=== PATIENT | female | born 1975 | race Caucasian/White ===

== ENCOUNTER 2017-08-28 08:47 | Outpatient (CLI) | payer MEDICAID ==
[~2017-08-28] VITALS: Ht 157.5 cm; Wt 65.3 kg
[~2017-08-28 08:47] MED LIST: ALBU8.5H4 IH; ALPR1T PO; BACL10TA PO; BCP; BSP10T; CRS350T PO; CYCL10TA9; FLUT12AE4 IH; FNT100TD TD; HYDR-2997 PO; HYDR-3720 PO; MORP15TA PO; MORP30TA28 PO; OXYC-12 PO; OXYC-272 PO; OXYC1CAP3 PO; TRAZ150T42
[2017-08-28] MEDS ORDERED: MORP15TA PO (09:18)
[2017-08-28] MEDS ORDERED: ROPI2TAB4 PO (09:18)
[2017-08-28] MEDS ORDERED: MORP30TA PO (09:18)
[2017-08-28] MEDS ORDERED: OXYC10TA7 PO (09:18)
[2017-08-28] MEDS ORDERED: ALPR0.5T7 PO (09:18)
[2017-08-28] MEDS ORDERED: ZOLP10TA PO (09:18)
[2017-08-28] MEDS ORDERED: GABA800T2 PO (09:18)
[2017-08-28] MEDS ORDERED: PANT20TA3 PO (09:19)
[2017-08-28] MEDS ORDERED: WARF5TAB PO (09:19)
== END 2017-08-28 09:20 ==
LOC: PREOP 08:47
PROVIDERS: ATTEND Surgery
DX: Z01.818 Encounter for other preprocedural examination (principal); D17.1 Benign lipomatous neoplasm of skin and subcutaneous tissue of trunk

== ENCOUNTER 2017-08-31 11:36 | Day surgery (SDC) | payer MEDICAID ==
[~2017-08-31] VITALS: Ht 157.5 cm; Wt 65.3 kg
[~2017-08-31 11:36] MED LIST changes: +ALPR0.5T7 PO; +GABA800T2 PO; +MORP30TA PO; +OXYC10TA7 PO; +PANT20TA3 PO; +ROPI2TAB4 PO; +WARF5TAB PO; +ZOLP10TA PO
--- NOTE | 2017-08-31 11:45 | Progress Note-Pre Operative ---
Pre-Operative Progress Note H&P Reviewed The H&P was reviewed, patient examined and no changes noted. Date Seen by Provider: Aug 31, 2017 Time Seen by Provider: 11:44 Date H&P Reviewed: Aug 31, 2017 Time H&P Reviewed: 11:44 Pre-Operative Diagnosis: left lower quadrant back mass ATIF VELAZQUEZ DO Aug 31, 2017 11:45
[2017-08-31 11:55] VITALS: BP 94/59
[2017-08-31] MEDS ORDERED: LIDOCAINE 1% INJ 20 ML (XYLOCAINE) VIAL ONE ×2 (12:05→12:20)
[2017-08-31] MEDS ORDERED: BUPIVACAINE 0.5% 30 ML (SENSORCAINE) VIAL ONE (12:05)
[2017-08-31] MEDS ORDERED: ceFAZolin 2 GM IV Premixed 50 ML IV ONE (12:15)
[2017-08-31] MEDS ORDERED: ONDANSETRON 4 MG/2 ML (SDV) Z0FRAN ONE (12:20)
[2017-08-31] MEDS ORDERED: DEXAMETHASONE 10 MG/ML (DECADRON) 1 ML VIAL ONE (12:20)
[2017-08-31] MEDS ORDERED: LIDOCAINE PF 2% 5 ML (XYLOCAINE) VIAL ONE (12:20)
[2017-08-31] MEDS ORDERED: proPOfol 200 MG/20 ML (DIPRIVAN) VIAL IV ONE (12:20)
[2017-08-31] MEDS ORDERED: SEVOFLURANE (ULTANE) 15 ML INHAL SOLN ONE (12:20)
[2017-08-31] MEDS ORDERED: MIDAZOLAM 2 MG/2 ML (VERSED) VIAL ONE ×2 (12:20→13:20)
[2017-08-31] MEDS ORDERED: fentaNYL INJECTION 100 MCG/2 ML AMP ONE (12:20)
[2017-08-31 12:22] LABS: HCG,QUALITATIVE URINE NEGATIVE (NEGATIVE)
[2017-08-31] MEDS: LACTATED RINGERS 1,000 ML IV PRN ×2 (12:35→14:37)
[2017-08-31 12:37] LABS: AMPHETAMINE SCREEN, URINE NEGATIVE (NEGATIVE); BARBITURATE SCREEN URINE NEGATIVE (NEGATIVE); BENZODIAZEPINES SCREEN URINE POSITIVE (NEGATIVE); CANNABINOID SCREEN, URINE NEGATIVE (NEGATIVE); COCAINE SCREEN URINE NEGATIVE (NEGATIVE); METHADONE STAT NEGATIVE (NEGATIVE); METHAMPHETAMINE SCREEN URINE S NEGATIVE (NEGATIVE); OPIATE SCREEN URINE POSITIVE (NEGATIVE); OXYCODONE STAT POSITIVE (NEGATIVE); PROPOXYPHENE STAT NEGATIVE (NEGATIVE); TRICYCLIC ANTIDEPRESSANTS SCRE NEGATIVE (NEGATIVE)
[2017-08-31] MEDS ORDERED: ceFAZolin 2 GM IV Premixed 50 ML ONE (12:41)
--- OUTSIDE RECORDS SUMMARY | 2017-08-31 12:44 | XMS REPORT ---
Author Author ANTONETTE KATZ [facility] eClinicalWorks Address Unknown Phone Unavailable Care Team Providers Care Charge Master Specialist Name Role Phone ANTONETTE KATZ CP Unavailable Allergies, Adverse Reactions, Alerts Substance Reaction Event Type Parafon Forte DSC nausea Drug Allergy Shellfish anaphylaxis Non Drug Allergy Problems Problem Type Condition Code Onset Dates Condition Status Problem Rhinitis 472.0 Active Problem Congestive heart failure 428.0 Active Problem GERD (gastroesophageal reflux disease) 530.81 Active Problem Coronary artery disease involving [place] coronary artery of [place] heart, angina presence unspecified I25.10 Active Problem Heart disease, unspecified I51.9 Active Problem Orbital cellulitis, left H05.012 Active Problem COPD (chronic obstructive pulmonary disease) 496 Active Problem Epilepsy 345.90 Active Problem Encounter for long-term (current) use of other medications Z79.899 Active Problem Moderate persistent asthma without complication J45.40 Active Assessment Heart disease, unspecified I51.9 Active Assessment Encounter for long-term (current) use of other medications Z79.899 Active Problem Unspecified heart disease 429.9 Active Problem Chronic pain due to trauma 338.21 Active Assessment Orbital cellulitis, left H05.012 Active Problem DVT (deep venous thrombosis) 453.40 Active Problem Dysthymic disorder 300.4 Active Problem Bipolar 1 disorder 296.7 Active Medications Medication Code System Code Instructions Start Date End Date Status Dosage Terbinafine [facility] [address]-23 1 % Externally 3 times a day Jun 09, 2015 as directed Voltaren [facility] [address]-69 1 % 1 APPLICATION BY TRANSDERMAL ROUTE 3 DAILY PRN APPLY 4 GM TO AFFECTED AREA QID Warfarin Sodium [facility] 96949778907 5 MG TAKE 1-2 TABLET BY ORAL ROUTE 1 TIME PER DAY TAKE DIRECTED Hydrocodone-Acetaminophen [facility] [address]-41 5-325 MG Orally 2 times a day. Must last 14 days 1 tablet ZyrTEC [facility] [address]-68 10 MG 1 tablet by Oral route 1 time per day Symbicort NDC [address]-66 160-4.5 MCG/ACT Inhalation Twice a day Jun 09, 2015 2 puffs Flonase Allergy Relief [facility] [address]-85 50 MCG/ACT Nasally 1-2 x/d October 14, 2014 1 -2 spray in each nostril MS Contin [facility] [address]-24 15 MG Orally 2 times a day. Must last 14 days 1 tablet Omeprazole [facility] [address]-94 20 MG Orally 2 times a day 1 capsule Ventolin HFA [facility] 69176178778 108 (90 Base) MCG/ACT INHALE 2 PUFF BY INHALATION ROUTE NEEDED EVERY 4 HOURS USE PRN SHORTNESS OF BREATH Albuterol Sulfate [facility] [address]-29 (2.5 MG/3ML) 0.083% Inhalation 4 times a day prn November 10, 2014 3 ml Parafon Forte DSC [facility] [address]-71 500 MG Orally Three times a day 1 tablet Venlafaxine HCl [facility] [address]-05 37.5 MG Orally Twice a day Apr 22, 2015 1 tablet with food HydrOXYzine HCl [facility] [address]-59 25 MG 1-2 Tablet by Oral route 3 times per day PRN hives Gabapentin [facility] [address]-78 800 MG Orally Three times a day November 18, 2014 1 tablet Procedures Procedure Coding System Code Date Office Visit, Est Pt., Level 3 CPT-4 20920 Jul 09, 2015 Vital Signs Date/Time: Jul 09, 2015 Temperature 98.2 F Weight 132.8 lbs Height 62 in BMI 24.29 Index Blood Pressure Diastolic 88 mmHg Blood Pressure Systolic 152 mmHg Cardiac Monitoring Heart Rate 84 bpm Results No Known Results Summary Purpose eClinicalWorks Submission
--- OUTSIDE RECORDS SUMMARY | 2017-08-31 12:44 | XMS REPORT ---
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 Active Problem Heart disease, unspecified I51.9 Active Problem Encounter for long-term (current) use of other medications Z79.899 Active Problem Orbital cellulitis, left H05.012 Active Problem Coronary artery disease involving [place] coronary artery of [place] heart, angina presence unspecified I25.10 Active Problem Dysthymic disorder 300.4 Active Problem Unspecified heart disease 429.9 Active Assessment Encounter for immunization Z23 Active Problem Bipolar 1 disorder 296.7 Active Problem Rhinitis 472.0 Active Problem Chronic pain due to trauma 338.21 Active Problem GERD (gastroesophageal reflux disease) 530.81 Active Problem DVT (deep venous thrombosis) 453.40 Active Problem Congestive heart failure 428.0 Active Medications No Known Medications Procedures Procedure Coding System Code Date SINGLE IMMUNIZATION ADMIN CPT-4 79488 Apr 19, 2016 FLUARIX QUAD P-FREE 3 AND UP .50 2015 CPT-4 63201 Apr 19, 2016 Results No Known Results Immunizations Vaccine Administration Date FLUZONE QUAD 3 AND UP 0.50 2015Apr 19, 2016 Summary Purpose eClinicalWorks Submission
--- OUTSIDE RECORDS SUMMARY | 2017-08-31 12:44 | XMS REPORT ---
Author Author ANTONETTE KATZ [facility] eClinicalWorks Address Unknown Phone Unavailable Care Team Providers Care Superintendent Greens Name Role Phone ANTONETTE KATZ CP Unavailable Allergies, Adverse Reactions, Alerts Substance Reaction Event Type Parafon Forte DSC nausea Drug Allergy Shellfish anaphylaxis Non Drug Allergy Problems Problem Type Condition Code Onset Dates Condition Status Problem Asthma 493.90 Active Problem Bipolar 1 disorder 296.7 Active Problem DVT (deep venous thrombosis) 453.40 Active Problem COPD (chronic obstructive pulmonary disease) 496 Active Problem Dysuria 788.1 Active Problem Encounter for long-term (current) use of other medications V58.69 Active Problem GERD (gastroesophageal reflux disease) 530.81 Active Problem Rhinitis 472.0 Active Problem Epilepsy 345.90 Active Problem Congestive heart failure 428.0 Active Problem Dysthymic disorder 300.4 Active Problem Unspecified heart disease 429.9 Active Assessment Dysthymic disorder 300.4 Active Problem Encounter for long-term (current) use of anticoagulants V58.61 Active Assessment Bronchitis J40 Active Problem Chronic pain due to trauma 338.21 Active Medications Medication Code System Code Instructions Start Date End Date Status Dosage HydrOXYzine HCl [facility] [address]-94 25 MG 1-2 Tablet by Oral route 3 times per day PRN hives Lamictal [facility] [address]-50 100 MG 1 TABLET(S) BY ORAL ROUTE 1 TIME PER DAY Warfarin Sodium [facility] 82164427282 5 MG TAKE 1-2 TABLET BY ORAL ROUTE 1 TIME PER DAY TAKE DIRECTED Zithromax Z-Luiz [facility] [address]-93 250 MG Orally Once a day Apr 22, 2015 Apr 27, 2015 2 tab d 1 then 1 tab qd Voltaren [facility] [address]-93 1 % 1 APPLICATION BY TRANSDERMAL ROUTE 3 DAILY PRN APPLY 4 GM TO AFFECTED AREA QID Flonase Allergy Relief [facility] [address]-36 50 MCG/ACT Nasally 1-2 x/d October 14, 2014 1 -2 spray in each nostril Omeprazole [facility] [address]-69 20 MG Orally 2 times a day [address] [facility] [address]-09 100 MG Orally Three times a day Apr 22, 2015 1 capsule as needed ZyrTEC [facility] [address]-67 10 MG 1 tablet by Oral route 1 time per day Ventolin HFA [facility] 74025354117 108 (90 Base) MCG/ACT INHALE 2 PUFF BY INHALATION ROUTE NEEDED EVERY 4 HOURS USE PRN SHORTNESS OF BREATH Albuterol Sulfate [facility] [address]-66 (2.5 MG/3ML) 0.083% Inhalation 4 times a day prn November 10, 2014 3 ml MS Contin [facility] [address]-66 15 MG Orally 2 times a day. Must last 14 days 1 tablet Hydrocodone-Acetaminophen [facility] [address]-89 5-325 MG Orally 2 times a day. Must last 14 days [address] [facility] [address]-87 10 MG Orally 2 per day Apr 22, 2015 Apr 27, 2015 1 tablet with food or milk Venlafaxine HCl [facility] [address]-23 37.5 MG Orally Twice a day Apr 22, 2015 1 tablet with food Gabapentin [facility] [address]-98 600 MG Orally Three times a day November 18, [address] [facility] [address]-10 25 MG Orally Once a day in am January 20, 2015 [address] [facility] [address]-86 500 MG Orally 1 tablet by Oral route 3 times per day PRN Procedures Procedure Coding System Code Date Office Visit, Est Pt., Level 3 CPT-4 27505 Apr 22, 2015 MEASURE BLOOD OXYGEN LEVEL CPT-4 71297 Apr 22, 2015 Vital Signs Date/Time: Apr 22, 2015 Temperature 97.9 F Weight 130 lbs Height 62 in Oximetry 99 % Blood Pressure Diastolic 76 mmHg Blood Pressure Systolic 138 mmHg Cardiac Monitoring Heart Rate 81 bpm BMI 23.77 Index Results No Known Results Summary Purpose eClinicalWorks Submission
--- OUTSIDE RECORDS SUMMARY | 2017-08-31 12:44 | XMS REPORT ---
Author Author ANTONETTE KATZ Organization eClinicalWorks Address Unknown Phone Unavailable Care Team Providers Care Metal Buggy Operator Name Role Phone ANTONETTE KATZ CP Unavailable Allergies No Known Allergies Problems Problem Type Condition ICD-9 Code Onset Dates Condition Status Problem Asthma [...] Problem Unspecified heart disease 429.9 Active Problem Encounter for long-term (current) use of anticoagulants V58.61 Active Problem Chronic pain due to trauma 338.21 Active Medications No Known Medications Results No Known Results Summary Purpose eClinicalWorks Submission
--- OUTSIDE RECORDS SUMMARY | 2017-08-31 12:44 | XMS REPORT ---
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 Active 72697732 Problem Dysthymic disorder F34.1 Active 55006174 Problem Coronary artery disease involving [place] coronary artery of [place] heart, angina presence unspecified I25.10 Active 0769231201376 Problem Heart disease, unspecified I51.9 Active 579915111 Problem Chronic pain due to trauma G89.21 Active 186339976 Problem Orbital cellulitis, left H05.012 Active 202081978 Problem Unspecified heart disease 429.9 Active 56037859 Problem Chronic pain due to trauma 338.21 Active 663085671 Problem Dysthymic disorder 300.4 Active 33742008 Problem Rhinitis 472.0 Active 68690864 Problem GERD (gastroesophageal reflux disease) 530.81 Active 683422157 Problem DVT (deep venous thrombosis) 453.40 Active 430012709 Problem Congestive heart failure 428.0 Active 43839927 Problem Bipolar 1 disorder 296.7 Active 597317231 Problem Epilepsy 345.90 Active 12019825 ALLERGIES Unknown Allergies SOCIAL HISTORY No smoking Hx information available PLAN OF CARE VITAL SIGNS MEDICATIONS Medication Instructions Dosage Frequency Start Date End Date Duration Status Sklice 0.5 % as directed May, 1 dose Active RESULTS No Results PROCEDURES No Known procedures IMMUNIZATIONS No Known Immunizations
--- OUTSIDE RECORDS SUMMARY | 2017-08-31 12:45 | XMS REPORT ---
Author Author ANTONETTE KATZ [facility] eClinicalWorks Address Unknown Phone Unavailable Care Team Providers Care Data Management Consultant Name Role Phone ANTONETTE KATZ CP Unavailable [...] Active Problem Congestive heart failure 428.0 Active Assessment Chronic pain due to trauma 338.21 Active Problem Dysthymic disorder 300.4 Active Problem Unspecified heart disease 429.9 Active Assessment COPD (chronic obstructive pulmonary disease) 496 Active Problem Encounter for long-term (current) use of anticoagulants V58.61 Active Assessment Encounter for long-term (current) use of anticoagulants V58.61 Active Problem Chronic pain due to trauma 338.21 Active Medications Medication Code System Code Instructions Start Date End Date Status Dosage Lamictal [facility] [address]-46 100 MG 1 TABLET(S) BY ORAL ROUTE 1 TIME PER DAY Gabapentin [facility] [address]-95 600 MG Orally Three times a day November 18, 2014 1 tablet HydrOXYzine HCl [facility] [address]-26 25 MG 1-2 Tablet by Oral route 3 times per day PRN hives Albuterol Sulfate [facility] [address]-87 (2.5 MG/3ML) 0.083% Inhalation 4 times a day prn November 10, 2014 3 ml Parafon Forte DSC [facility] [address]-88 500 MG Orally Three times a day AprMay 30, 2015 1 tablet Warfarin Sodium [facility] 97929473935 5 MG TAKE 1-2 TABLET BY ORAL ROUTE 1 TIME PER DAY TAKE DIRECTED Venlafaxine HCl [facility] [address]-02 37.5 MG Orally Twice a day Apr 22, 2015 1 tablet with food Ventolin HFA [facility] 20704633202 108 (90 Base) MCG/ACT INHALE 2 PUFF BY INHALATION ROUTE NEEDED EVERY 4 HOURS USE PRN SHORTNESS OF BREATH Flonase Allergy Relief [facility] [address]-33 50 MCG/ACT Nasally 1-2 x/d October 14, 2014 1 -2 spray in each nostril Voltaren [facility] [address]-02 1 % 1 APPLICATION BY TRANSDERMAL ROUTE 3 DAILY PRN APPLY 4 GM TO AFFECTED AREA QID Methocarbamol [facility] [address]-98 500 MG Orally 1 tablet by Oral route 3 times per day PRN Lamictal [facility] [address]-08 25 MG Orally Once a day in am January 20, 2015 2 tablets Omeprazole [facility] [address]-40 20 MG Orally 2 times a day 1 capsule ZyrTEC [facility] [address]-27 10 MG 1 tablet by Oral route 1 time per day Procedures Procedure Coding System Code Date Office Visit, Est Pt., Level 3 CPT-4 37017 May 20, 2015 Vital Signs Date/Time: May 20, 2015 Temperature 98.3 F Weight 126 lbs Height 62 in BMI 23.04 Index Blood Pressure Diastolic 76 mmHg Blood Pressure Systolic 112 mmHg Cardiac Monitoring Heart Rate 77 bpm Results No Known Results Summary Purpose eClinicalWorks Submission
--- OUTSIDE RECORDS SUMMARY | 2017-08-31 12:45 | XMS REPORT ---
Author Author ANTONETTE KATZ [facility] eClinicalWorks Address Unknown Phone Unavailable Care Team Providers Care Professor Of Religion Name Role Phone ANTONETTE KATZ CP Unavailable Allergies, Adverse Reactions, Alerts Substance Reaction Event Type Parafon Forte DSC nausea Drug Allergy Shellfish anaphylaxis Non Drug Allergy Problems Problem Type Condition Code Onset Dates Condition Status Problem Chronic pain due to trauma 338.21 Active Problem Bipolar 1 disorder 296.7 Active Problem DVT (deep venous thrombosis) 453.40 Active Problem Moderate persistent asthma without complication J45.40 Active Problem COPD (chronic obstructive pulmonary disease) 496 Active Problem Encounter for long-term (current) use of other medications Z79.899 Active Problem GERD (gastroesophageal reflux disease) 530.81 Active Problem Rhinitis 472.0 Active Problem Epilepsy 345.90 Active Problem Congestive heart failure 428.0 Active Assessment Tinea corporis B35.4 Active Assessment Encounter for long-term (current) use of other medications Z79.899 Active Problem Dysthymic disorder 300.4 Active Assessment Moderate persistent asthma without complication J45.40 Active Problem Unspecified heart disease 429.9 Active Medications Medication Code System Code Instructions Start Date End Date Status Dosage Gabapentin [facility] [address]-99 600 MG Orally Three times a day November 18, 2014 1 tablet Voltaren [facility] [address]-00 1 % 1 APPLICATION BY TRANSDERMAL ROUTE 3 DAILY PRN APPLY 4 GM TO AFFECTED AREA QID Albuterol Sulfate [facility] [address]-12 (2.5 MG/3ML) 0.083% Inhalation 4 times a day prn November 10, 2014 3 ml Methocarbamol [facility] [address]-22 500 MG Orally 1 tablet by Oral route 3 times per day PRN Symbicort [facility] [address]-00 160-4.5 MCG/ACT Inhalation Twice a day Jun 09, 2015 2 puffs Venlafaxine HCl [facility] [address]-31 37.5 MG Orally Twice a day Apr 22, 2015 1 tablet with food Ventolin HFA [facility] 34919053451 108 (90 Base) MCG/ACT INHALE 2 PUFF BY INHALATION ROUTE NEEDED EVERY 4 HOURS USE PRN SHORTNESS OF BREATH Terbinafine [facility] [address]-08 1 % Externally 3 times a day Jun 09, 2015 as directed Omeprazole [facility] [address]-02 20 MG Orally 2 times a day 1 capsule HydrOXYzine HCl [facility] [address]-55 25 MG 1-2 Tablet by Oral route 3 times per day PRN hives Warfarin Sodium [facility] 00782892422 5 MG TAKE 1-2 TABLET BY ORAL ROUTE 1 TIME PER DAY TAKE DIRECTED ZyrTEC [facility] [address]-64 10 MG 1 tablet by Oral route 1 time per day Lamictal [facility] [address]-54 25 MG Orally Once a day in am January 20, 2015 2 tablets Lamictal [facility] [address]-92 100 MG 1 TABLET(S) BY ORAL ROUTE 1 TIME PER DAY Flonase Allergy Relief [facility] [address]-15 50 MCG/ACT Nasally 1-2 x/d October 14, 2014 1 -2 spray in each nostril Procedures Procedure Coding System Code Date Office Visit, Est Pt., Level 3 CPT-4 43675 Jun 09, 2015 PROTHROMBIN TIME CPT-4 03117 Jun 09, 2015 Vital Signs Date/Time: Jun 09, 2015 Temperature 97.0 F Weight 121 lbs Height 62 in BMI 22.13 Index Blood Pressure Diastolic 70 mmHg Blood Pressure Systolic 128 mmHg Cardiac Monitoring Heart Rate 66 bpm Results Name Result Date Reference Range Unit Abnormality Flag INR (IN HOUSE) ----Exp date [id number] ----Lot # [id number] ----INR >8.0 [id number] 1.10 - 3.30 ----PREVIOUS INR 4.3 [id number] ----CURRENT COUMADIN DOSE 5 mg all days except W-7.5 mg [id number] ----NEW COUMADIN DOSE Skip tonights dose and take 5 mg every day. Recheck in 1 week [id number] Summary Purpose eClinicalWorks Submission
--- OUTSIDE RECORDS SUMMARY | 2017-08-31 12:45 | XMS REPORT ---
Author Author ANTONETTE KATZ Organization eClinicalWorks Address Unknown Phone Unavailable Care Team Providers Care Exercise Physiologist Certified Name Role Phone ANTONETTE KATZ CP Unavailable Allergies No Known Allergies Problems Problem Type Condition Code Onset Dates Condition Status Problem Congestive heart failure 428.0 Active Problem COPD (chronic obstructive pulmonary disease) 496 Active Problem Epilepsy 345.90 Active Problem Chronic pain due to trauma G89.21 Active Problem Orbital cellulitis, left H05.012 Active Problem Dysthymic disorder F34.1 Active Problem Encounter for long-term (current) use of other medications Z79.899 Active Problem Moderate persistent asthma without complication J45.40 Active Problem Coronary artery disease involving [place] coronary artery of [place] heart, angina presence unspecified I25.10 Active Problem Heart disease, unspecified I51.9 Active Problem Dysthymic disorder 300.4 Active Problem DVT (deep venous thrombosis) 453.40 Active Problem Bipolar 1 disorder 296.7 Active Problem Unspecified heart disease 429.9 Active Problem Rhinitis 472.0 Active Problem Chronic pain due to trauma 338.21 Active Problem GERD (gastroesophageal reflux disease) 530.81 Active Medications No Known Medications Results No Known Results Summary Purpose eClinicalWorks Submission
--- OUTSIDE RECORDS SUMMARY | 2017-08-31 12:46 | XMS REPORT | Continuity of Care Document ---
Author Author [facility] Address Unknown Phone Unavailable Allergies Active Description Code Type Severity Reaction Onset Reported/Identified Relationship to Patient Clinical Status Yes iodine [id number] Drug Allergy Unknown N/A 08/21/2012 Yes SEAFOOD SEAFOOD Unknown N/A 08/21/2012 Yes SHELLFISH Food Allergy N/A N/A 11/06/2013 Medications There is no data. Problems Date Dx Coded Attending Type Code Diagnosis Diagnosed By 05/11/2009 LIEN CHAVEZ MD 626.0 ABSENCE OF MENSTRUATION 05/11/2009 626.0 ABSENCE OF MENSTRUATION 05/11/2009 JULES PIERRE MD 626.0 ABSENCE OF MENSTRUATION 05/11/2009 JULES PIERRE MD 626.0 ABSENCE OF MENSTRUATION 05/11/2009 626.0 ABSENCE OF MENSTRUATION 05/11/2009 JULES PIERRE MD 626.0 ABSENCE OF MENSTRUATION 05/11/2009 626.0 ABSENCE OF MENSTRUATION 05/11/2009 626.0 ABSENCE OF MENSTRUATION 05/11/2009 626.0 ABSENCE OF MENSTRUATION 05/11/2009 MATT ENCISO DOA K 626.0 ABSENCE OF MENSTRUATION 05/11/2009 AMTT ENCISO DOA K 626.0 ABSENCE OF MENSTRUATION 05/11/2009 ENCISO DOMATTA K 626.0 ABSENCE OF MENSTRUATION 05/11/2009 ENCISO DO PETE K 626.0 ABSENCE OF MENSTRUATION 05/11/2009 ENCISO MATT RODRIGUEZA K 626.0 ABSENCE OF MENSTRUATION 05/11/2009 ANTONETTE KATZ APRN 626.0 ABSENCE OF MENSTRUATION 05/11/2009 ANTONETTE KATZ APRN 626.0 ABSENCE OF MENSTRUATION 05/11/2009 LESLIE LINDSEY DDS 626.0 ABSENCE OF MENSTRUATION 05/11/2009 TYRA GILL DDS 626.0 ABSENCE OF MENSTRUATION 05/11/2009 ENCISO DO, PETE K 626.0 ABSENCE OF MENSTRUATION 05/11/2009 KATZANTONETTE VARELA APRN R 626.0 ABSENCE OF MENSTRUATION 05/11/2009 ENCISO DO, PETE K 626.0 ABSENCE OF MENSTRUATION 05/11/2009 ENCISO DO, PETE K 626.0 ABSENCE OF MENSTRUATION 05/11/2009 ENCISO DO, PETE K 626.0 ABSENCE OF MENSTRUATION 05/11/2009 ENCISO DO, PETE K 626.0 ABSENCE OF MENSTRUATION 05/11/2009 KATZANTONETTE VARELA APRN R 626.0 ABSENCE OF MENSTRUATION 05/11/2009 ENCISO DO, PETE K 626.0 ABSENCE OF MENSTRUATION 05/11/2009 ENCISO DO, PETE K 626.0 ABSENCE OF MENSTRUATION 05/11/2009 ENCISO DO, PETE K 626.0 ABSENCE OF MENSTRUATION 05/11/2009 KATZANTONETTE VARELA APRN R 626.0 ABSENCE OF MENSTRUATION 05/11/2009 ENCISO DO, PETE K 626.0 ABSENCE OF MENSTRUATION 05/11/2009 ENCISO DO, PETE K 626.0 ABSENCE OF MENSTRUATION 05/11/2009 KATZANTONETTE VARELA APRN R 626.0 ABSENCE OF MENSTRUATION 05/11/2009 ENCISO DO, PETE K 626.0 ABSENCE OF MENSTRUATION 05/12/2009 LIEN CHAVEZ MD 461.9 ACUTE SINUSITIS, UNSPECIFIED 05/12/2009 LIEN CHAVEZ MD 786.2 COUGH 05/12/2009 461.9 ACUTE SINUSITIS, UNSPECIFIED 05/12/2009 786.2 COUGH 05/12/2009 JULES PIERRE MD 461.9 ACUTE SINUSITIS, UNSPECIFIED 05/12/2009 JULES PIERRE MD 786.2 COUGH 05/12/2009 JULES PIERRE MD 461.9 ACUTE SINUSITIS, UNSPECIFIED 05/12/2009 JULES PIERRE MD 786.2 COUGH 05/12/2009 461.9 ACUTE SINUSITIS, UNSPECIFIED 05/12/2009 786.2 COUGH 05/12/2009 JULES PIERRE MD 461.9 ACUTE SINUSITIS, UNSPECIFIED 05/12/2009 JULES PIERRE MD 786.2 COUGH 05/12/2009 461.9 ACUTE SINUSITIS, UNSPECIFIED 05/12/2009 786.2 COUGH 05/12/2009 461.9 ACUTE SINUSITIS, UNSPECIFIED 05/12/2009 786.2 COUGH 05/12/2009 461.9 ACUTE SINUSITIS, UNSPECIFIED 05/12/2009 786.2 COUGH 05/12/2009 ENCISO DO, PETE K 461.9 ACUTE SINUSITIS, UNSPECIFIED 05/12/2009 ENCISO DO, PETE K 786.2 COUGH 05/12/2009 ENCISO DO, PETE K 461.9 ACUTE SINUSITIS, UNSPECIFIED 05/12/2009 ENCISO DO, PETE K 786.2 COUGH 05/12/2009 ENCISO DO, PETE K 461.9 ACUTE SINUSITIS, UNSPECIFIED 05/12/2009 ENCISO DO, PETE K 786.2 COUGH 05/12/2009 ENCISO DO, PETE K 461.9 ACUTE SINUSITIS, UNSPECIFIED 05/12/2009 ENCISO DO, PETE K 786.2 COUGH 05/12/2009 ENCISO DO, PETE K 461.9 ACUTE SINUSITIS, UNSPECIFIED 05/12/2009 ENCISO DO, PETE K 786.2 COUGH 05/12/2009 KATZ ANTONETTE DAILEY R 461.9 ACUTE SINUSITIS, UNSPECIFIED 05/12/2009 KATZ ASIM, ANTONETTE R 786.2 COUGH 05/12/2009 KATZ ANTONETTE DAILEY R 461.9 ACUTE SINUSITIS, UNSPECIFIED 05/12/2009 KATZ SHEAR GRINDER OPERATORANTONETTE R 786.2 COUGH 05/12/2009 CÉSAR DDS, LESLIE M 461.9 ACUTE SINUSITIS, UNSPECIFIED 05/12/2009 CÉSAR DDS, LESLIE M 786.2 COUGH 05/12/2009 JAIRO DDS, TYRA B 461.9 ACUTE SINUSITIS, UNSPECIFIED 05/12/2009 JAIRO DDS, TYRA B 786.2 COUGH 05/12/2009 ENCISO DO, PETE K 461.9 ACUTE SINUSITIS, UNSPECIFIED 05/12/2009 ENCISO DO, PETE K 786.2 COUGH 05/12/2009 KATZ SHEAR GRINDER OPERATOR, ANTONETTE R 461.9 ACUTE SINUSITIS, UNSPECIFIED 05/12/2009 KATZ SHEAR GRINDER OPERATOR, ANTONETTE R 786.2 COUGH 05/12/2009 ENCISO DO, PETE K 461.9 ACUTE SINUSITIS, UNSPECIFIED 05/12/2009 ENCISO DO, PETE K 786.2 COUGH 05/12/2009 ENCISO DO, PETE K 461.9 ACUTE SINUSITIS, UNSPECIFIED 05/12/2009 ENCISO DO, PETE K 786.2 COUGH 05/12/2009 ENCISO DO, PETE K 461.9 ACUTE SINUSITIS, UNSPECIFIED 05/12/2009 ENCISO DO, PETE K 786.2 COUGH 05/12/2009 ENCISO DO, PETE K 461.9 ACUTE SINUSITIS, UNSPECIFIED 05/12/2009 ENCISO DO, PETE K 786.2 COUGH 05/12/2009 KATZANTONETTE VARELA APRN R 461.9 ACUTE SINUSITIS, UNSPECIFIED 05/12/2009 KATZ ANTONETTE DAILEY R 786.2 COUGH 05/12/2009 ENCISO DO, PETE K 461.9 ACUTE SINUSITIS, UNSPECIFIED 05/12/2009 ENCISO DO, PETE K 786.2 COUGH 05/12/2009 ENCISO DO, PETE K 461.9 ACUTE SINUSITIS, UNSPECIFIED 05/12/2009 ENCISO DO, PETE K 786.2 COUGH 05/12/2009 ENCISO DO, PETE K 461.9 ACUTE SINUSITIS, UNSPECIFIED 05/12/2009 ENCISO DO, PETE K 786.2 COUGH 05/12/2009 KATZ ANTONETTE DAILEY R 461.9 ACUTE SINUSITIS, UNSPECIFIED 05/12/2009 KATZ ANTONETTE DAILEY R 786.2 COUGH 05/12/2009 ENCISO DO, PETE K 461.9 ACUTE SINUSITIS, UNSPECIFIED 05/12/2009 ENCISO DO, PETE K 786.2 COUGH 05/12/2009 ENCISO DO, PETE K 461.9 ACUTE SINUSITIS, UNSPECIFIED 05/12/2009 ENCISO DO, PETE K 786.2 COUGH 05/12/2009 KATZANTONETTE VARELA APRN R 461.9 ACUTE SINUSITIS, UNSPECIFIED 05/12/2009 KATZ ANTONETTE DAILEY 786.2 COUGH 05/12/2009 ENCISO DO, PETE K 461.9 ACUTE SINUSITIS, UNSPECIFIED 05/12/2009 ENCISO DO, PETE K 786.2 COUGH 05/26/2009 LIEN CHAVEZ MD 625.3 severe menstrual pain (dysmenorrhea) 05/26/2009 LIEN HCAVEZ MD 626.6 heavy bleeding between periods (metrorrhagia) 05/26/2009 625.3 severe menstrual pain (dysmenorrhea) 05/26/2009 626.6 heavy bleeding between periods (metrorrhagia) 05/26/2009 JULES PIERRE MD 625.3 severe menstrual pain (dysmenorrhea) 05/26/2009 JULES PIERRE MD 626.6 heavy bleeding between periods (metrorrhagia) 05/26/2009 JULES PIERRE MD 625.3 severe menstrual pain (dysmenorrhea) 05/26/2009 JULES PIERRE MD 626.6 heavy bleeding between periods (metrorrhagia) 05/26/2009 625.3 severe menstrual pain (dysmenorrhea) 05/26/2009 626.6 heavy bleeding between periods (metrorrhagia) 05/26/2009 JULES PIERRE MD 625.3 severe menstrual pain (dysmenorrhea) 05/26/2009 JULES PIERRE MD 626.6 heavy bleeding between periods (metrorrhagia) 05/26/2009 625.3 severe menstrual pain (dysmenorrhea) 05/26/2009 626.6 heavy bleeding between periods (metrorrhagia) 05/26/2009 625.3 severe menstrual pain (dysmenorrhea) 05/26/2009 626.6 heavy bleeding between periods (metrorrhagia) 05/26/2009 625.3 severe menstrual pain (dysmenorrhea) 05/26/2009 626.6 heavy bleeding between periods (metrorrhagia) 05/26/2009 ENCISO , PETE K 625.3 severe menstrual pain (dysmenorrhea) 05/26/2009 ENCISO DO PETE K 626.6 heavy bleeding between periods (metrorrhagia) 05/26/2009 ENCISO DO, PETE K 625.3 severe menstrual pain (dysmenorrhea) 05/26/2009 ENCISO DO, PETE K 626.6 heavy bleeding between periods (metrorrhagia) 05/26/2009 ENCISO , PETE K 625.3 severe menstrual pain (dysmenorrhea) 05/26/2009 ENCISO DO, PETE K 626.6 heavy bleeding between periods (metrorrhagia) 05/26/2009 ENCISO DO PETE K 625.3 severe menstrual pain (dysmenorrhea) 05/26/2009 ENCISO DO PETE K 626.6 heavy bleeding between periods (metrorrhagia) 05/26/2009 ENCISO DO PETE K 625.3 severe menstrual pain (dysmenorrhea) 05/26/2009 ENCISO DO PETE K 626.6 heavy bleeding between periods (metrorrhagia) 05/26/2009 ANTONETTE KATZ APRN 625.3 severe menstrual pain (dysmenorrhea) 05/26/2009 ANTONETTE KATZ APRN R 626.6 heavy bleeding between periods (metrorrhagia) 05/26/2009 ANTONETTE KATZ APRN R 625.3 severe menstrual pain (dysmenorrhea) 05/26/2009 ANTONETTE KATZ APRN R 626.6 heavy bleeding between periods (metrorrhagia) 05/26/2009 CÉSAR DDS, LESLIE M 625.3 severe menstrual pain (dysmenorrhea) 05/26/2009 CÉSAR DDS, LESLIE M 626.6 heavy bleeding between periods (metrorrhagia) 05/26/2009 JAIRO DDS, TYRA B 625.3 severe menstrual pain (dysmenorrhea) 05/26/2009 JAIRO DDS, TYRA B 626.6 heavy bleeding between periods (metrorrhagia) 05/26/2009 ENCISO DO PETE K 625.3 severe menstrual pain (dysmenorrhea) 05/26/2009 ENCISO , PETE K 626.6 heavy bleeding between periods (metrorrhagia) 05/26/2009 ANTONETTE KATZ APRN R 625.3 severe menstrual pain (dysmenorrhea) 05/26/2009 ANTONETTE KATZ APRN R 626.6 heavy bleeding between periods (metrorrhagia) 05/26/2009 ENCISO , PETE K 625.3 severe menstrual pain (dysmenorrhea) 05/26/2009 ENCISO DO, PETE K 626.6 heavy bleeding between periods (metrorrhagia) 05/26/2009 ENCISO DO, PETE K 625.3 severe menstrual pain (dysmenorrhea) 05/26/2009 ENCISO , PETE K 626.6 heavy bleeding between periods (metrorrhagia) 05/26/2009 ENCISO DO PETE K 625.3 severe menstrual pain (dysmenorrhea) 05/26/2009 FERNIE RODRIGUEZ PETE K 626.6 heavy bleeding between periods (metrorrhagia) 05/26/2009 FERNIE RODRIGUEZ PETE K 625.3 severe menstrual pain (dysmenorrhea) 05/26/2009 FERNIE RODRIGUEZ PETE K 626.6 heavy bleeding between periods (metrorrhagia) 05/26/2009 ANTONETTE KATZ APRN 625.3 severe menstrual pain (dysmenorrhea) 05/26/2009 ANTONETTE KATZ APRN 626.6 heavy bleeding between periods (metrorrhagia) 05/26/2009 MATT ENCISO DOA K 625.3 severe menstrual pain (dysmenorrhea) 05/26/2009 ENCISO DO PETE K 626.6 heavy bleeding between periods (metrorrhagia) 05/26/2009 FERNIE RODRIGUEZ PETE K 625.3 severe menstrual pain (dysmenorrhea) 05/26/2009 MATT ENCISO DOA K 626.6 heavy bleeding between periods (metrorrhagia) 05/26/2009 MATT ENCISO DOA K 625.3 severe menstrual pain (dysmenorrhea) 05/26/2009 MATT ENCISO DOA K 626.6 heavy bleeding between periods (metrorrhagia) 05/26/2009 ANTONETTE KATZ APRN 625.3 severe menstrual pain (dysmenorrhea) 05/26/2009 ANTONETTE KATZ APRN 626.6 heavy bleeding between periods (metrorrhagia) 05/26/2009 MATT ENCISO DOA K 625.3 severe menstrual pain (dysmenorrhea) 05/26/2009 MATT ENCISO DOA K 626.6 heavy bleeding between periods (metrorrhagia) 05/26/2009 MATT ENCISO DOA K 625.3 severe menstrual pain (dysmenorrhea) 05/26/2009 FERNIE RODRIGUEZ PETE K 626.6 heavy bleeding between periods (metrorrhagia) 05/26/2009 ANTONETTE KATZ APRN 625.3 severe menstrual pain (dysmenorrhea) 05/26/2009 ANTONETTE KATZ APRN 626.6 heavy bleeding between periods (metrorrhagia) 05/26/2009 MATT ENCISO DOA K 625.3 severe menstrual pain (dysmenorrhea) 05/26/2009 MATT ENCISO DOA K 626.6 heavy bleeding between periods (metrorrhagia) 07/28/2010 Ot 812.03 07/28/2010 Ot 959.2 07/28/2010 Ot E000.8 07/28/2010 Ot E003.2 07/28/2010 Ot E849.4 07/28/2010 Ot E917.9 07/31/2010 Ot 812.03 07/31/2010 Ot 959.2 07/31/2010 Ot E000.8 07/31/2010 Ot E003.2 07/31/2010 Ot E849.4 07/31/2010 Ot E888.9 08/05/2010 Ot 812.03 08/05/2010 Ot E000.8 08/05/2010 Ot E849.0 08/05/2010 Ot E888.9 11/03/2010 Ot 784.0 11/28/2010 Ot 847.0 11/28/2010 Ot 959.09 11/28/2010 Ot E000.8 11/28/2010 Ot E849.0 11/28/2010 Ot E888.9 12/01/2010 Ot 723.1 12/01/2010 Ot 847.0 12/01/2010 Ot E000.8 12/01/2010 Ot E819.9 02/25/2012 SCOTT WRIGHT, LIEN 682.7 CELLULITIS - FOOT 02/25/2012 682.7 CELLULITIS - FOOT 02/25/2012 JULES PIERRE MD 682.7 CELLULITIS - FOOT 02/25/2012 JULES PIERRE MD 682.7 CELLULITIS - FOOT 02/25/2012 682.7 CELLULITIS - FOOT 02/25/2012 JULES PIERRE MD 682.7 CELLULITIS - FOOT 02/25/2012 682.7 CELLULITIS - FOOT 02/25/2012 682.7 CELLULITIS - FOOT 02/25/2012 682.7 CELLULITIS - FOOT 02/25/2012 PETE ENCISO DO 682.7 CELLULITIS - FOOT 02/25/2012 PETE ENCISO DO 682.7 CELLULITIS - FOOT 02/25/2012 PETE ENCISO DO 682.7 CELLULITIS - FOOT 02/25/2012 PETE ENCISO DO 682.7 CELLULITIS - FOOT 02/25/2012 PETE ENCISO DO 682.7 CELLULITIS - FOOT 02/25/2012 ANTONETTE KATZ APRN 682.7 CELLULITIS - FOOT 02/25/2012 ANTONTETE KATZ APRN 682.7 CELLULITIS - FOOT 02/25/2012 CÉSAR DDS, LESLIE Tang 682.7 CELLULITIS - FOOT 02/25/2012 JAIRO DDS, TYRA B 682.7 CELLULITIS - FOOT 02/25/2012 ENCISO DO, PETE K 682.7 CELLULITIS - FOOT 02/25/2012 ANTONETTE KATZ APRN 682.7 CELLULITIS - FOOT 02/25/2012 ENCISO DO, PETE K 682.7 CELLULITIS - FOOT 02/25/2012 ENCISO DO, PETE K 682.7 CELLULITIS - FOOT 02/25/2012 ENCISO DO, PETE K 682.7 CELLULITIS - FOOT 02/25/2012 ENCISO DO, PETE K 682.7 CELLULITIS - FOOT 02/25/2012 ANTONETTE KATZ APRN 682.7 CELLULITIS - FOOT 02/25/2012 ENCISO DO, PETE K 682.7 CELLULITIS - FOOT 02/25/2012 ENCISO DO, PETE K 682.7 CELLULITIS - FOOT 02/25/2012 ENCISO DO, PETE K 682.7 CELLULITIS - FOOT 02/25/2012 ANTONETTE KATZ APRN 682.7 CELLULITIS - FOOT 02/25/2012 ENCISO DO, PETE K 682.7 CELLULITIS - FOOT 02/25/2012 ENCISO DO, PETE K 682.7 CELLULITIS - FOOT 02/25/2012 ANTONETTE KATZ APRN 682.7 CELLULITIS - FOOT 02/25/2012 ENCISO DO, PETE K 682.7 CELLULITIS - FOOT 04/26/2012 SCOTT WRIGHT, LIEN 338.21 CHRONIC PAIN DUE TO TRAUMA 04/26/2012 338.21 CHRONIC PAIN DUE TO TRAUMA 04/26/2012 JULES PIERRE MD 338.21 CHRONIC PAIN DUE TO TRAUMA 04/26/2012 JULES PIERRE MD 338.21 CHRONIC PAIN DUE TO TRAUMA 04/26/2012 338.21 CHRONIC PAIN DUE TO TRAUMA 04/26/2012 JULES PIERRE MD 338.21 CHRONIC PAIN DUE TO TRAUMA 04/26/2012 338.21 CHRONIC PAIN DUE TO TRAUMA 04/26/2012 338.21 CHRONIC PAIN DUE TO TRAUMA 04/26/2012 338.21 CHRONIC PAIN DUE TO TRAUMA 04/26/2012 ENCISO DOMATTA K 338.21 CHRONIC PAIN DUE TO TRAUMA 04/26/2012 ENCISO DOMATTA K 338.21 CHRONIC PAIN DUE TO TRAUMA 04/26/2012 ENCISO DOMATTA K 338.21 CHRONIC PAIN DUE TO TRAUMA 04/26/2012 ENCISO DOMATTA K 338.21 CHRONIC PAIN DUE TO TRAUMA 04/26/2012 ENCISO DOMATTA K 338.21 CHRONIC PAIN DUE TO TRAUMA 04/26/2012 ANTONETTE KATZ APRN R 338.21 CHRONIC PAIN DUE TO TRAUMA 04/26/2012 ANTONETTE KATZ APRN R 338.21 CHRONIC PAIN DUE TO TRAUMA 04/26/2012 CÉSAR DDS, LESLIE M 338.21 CHRONIC PAIN DUE TO TRAUMA 04/26/2012 JAIRO DDS, TYRA King 338.21 CHRONIC PAIN DUE TO TRAUMA 04/26/2012 PETE ENCISO DO K 338.21 CHRONIC PAIN DUE TO TRAUMA 04/26/2012 ANTONETTE KATZ APRN 338.21 CHRONIC PAIN DUE TO TRAUMA 04/26/2012 MATT ENCISO DOA K 338.21 CHRONIC PAIN DUE TO TRAUMA 04/26/2012 MATT ENCISO DOA K 338.21 CHRONIC PAIN DUE TO TRAUMA 04/26/2012 MATT ENCISO DOA K 338.21 CHRONIC PAIN DUE TO TRAUMA 04/26/2012 MATT ENCISO DOA K 338.21 CHRONIC PAIN DUE TO TRAUMA 04/26/2012 ANTONETTE KATZ APRN R 338.21 CHRONIC PAIN DUE TO TRAUMA 04/26/2012 MATT ENCISO DOA K 338.21 CHRONIC PAIN DUE TO TRAUMA 04/26/2012 ENCISO DOMATTA K 338.21 CHRONIC PAIN DUE TO TRAUMA 04/26/2012 ENCISO MATT RODRIGUEZA K 338.21 CHRONIC PAIN DUE TO TRAUMA 04/26/2012 ANTONETTE KATZ APRN 338.21 CHRONIC PAIN DUE TO TRAUMA 04/26/2012 MATT ENCISO DOA K 338.21 CHRONIC PAIN DUE TO TRAUMA 04/26/2012 ENCISO DO PETE K 338.21 CHRONIC PAIN DUE TO TRAUMA 04/26/2012 ANTONETTE KATZ APRN R 338.21 CHRONIC PAIN DUE TO TRAUMA 04/26/2012 PETE ENCISO DO K 338.21 CHRONIC PAIN DUE TO TRAUMA 05/21/2012 SCOTT WRIGHT, LIEN 376.01 PERIORBITAL ABSCESS - RIGHT EYE 05/21/2012 376.01 PERIORBITAL ABSCESS - RIGHT EYE 05/21/2012 JULES PIERRE MD 376.01 PERIORBITAL ABSCESS - RIGHT EYE 05/21/2012 JULES PIERRE MD 376.01 PERIORBITAL ABSCESS - RIGHT EYE 05/21/2012 376.01 PERIORBITAL ABSCESS - RIGHT EYE 05/21/2012 JULES PIERRE MD 376.01 PERIORBITAL ABSCESS - RIGHT EYE 05/21/2012 376.01 PERIORBITAL ABSCESS - RIGHT EYE 05/21/2012 376.01 PERIORBITAL ABSCESS - RIGHT EYE 05/21/2012 376.01 PERIORBITAL ABSCESS - RIGHT EYE 05/21/2012 PETE ENCISO DO K 376.01 PERIORBITAL ABSCESS - RIGHT EYE 05/21/2012 PETE ENCISO DO K 376.01 PERIORBITAL ABSCESS - RIGHT EYE 05/21/2012 PETE ENCISO DO K 376.01 PERIORBITAL ABSCESS - RIGHT EYE 05/21/2012 PETE ENCISO DO K 376.01 PERIORBITAL ABSCESS - RIGHT EYE 05/21/2012 PETE ENCISO DO K 376.01 PERIORBITAL ABSCESS - RIGHT EYE 05/21/2012 ANTONETTE KATZ APRN 376.01 PERIORBITAL ABSCESS - RIGHT EYE 05/21/2012 ANTONETTE KATZ APRN 376.01 PERIORBITAL ABSCESS - RIGHT EYE 05/21/2012 CÉSAR DDS, LESLIE Tang 376.01 PERIORBITAL ABSCESS - RIGHT EYE 05/21/2012 JAIRO DDS, TYRA B 376.01 PERIORBITAL ABSCESS - RIGHT EYE 05/21/2012 PETE ENCISO DO K 376.01 PERIORBITAL ABSCESS - RIGHT EYE 05/21/2012 ANTONETTE KATZ APRN 376.01 PERIORBITAL ABSCESS - RIGHT EYE 05/21/2012 PETE ENCISO DO K 376.01 PERIORBITAL ABSCESS - RIGHT EYE 05/21/2012 PETE ENCISO DO K 376.01 PERIORBITAL ABSCESS - RIGHT EYE 05/21/2012 PETE ENCISO DO K 376.01 PERIORBITAL ABSCESS - RIGHT EYE 05/21/2012 PETE ENCISO DO K 376.01 PERIORBITAL ABSCESS - RIGHT EYE 05/21/2012 ANTONETTE KATZ APRN 376.01 PERIORBITAL ABSCESS - RIGHT EYE 05/21/2012 ENCISO DO, PETE K 376.01 PERIORBITAL ABSCESS - RIGHT EYE 05/21/2012 ENCISO DO, PETE K 376.01 PERIORBITAL ABSCESS - RIGHT EYE 05/21/2012 ENCISO DO, PETE K 376.01 PERIORBITAL ABSCESS - RIGHT EYE 05/21/2012 ANTONETTE KATZ APRN 376.01 PERIORBITAL ABSCESS - RIGHT EYE 05/21/2012 ENCISO DO, PETE K 376.01 PERIORBITAL ABSCESS - RIGHT EYE 05/21/2012 ENCISO DO, PETE K 376.01 PERIORBITAL ABSCESS - RIGHT EYE 05/21/2012 ANTONETTE KATZ APRN 376.01 PERIORBITAL ABSCESS - RIGHT EYE 05/21/2012 ENCISO DO, PETE K 376.01 PERIORBITAL ABSCESS - RIGHT EYE 05/30/2012 708.0 ALLERGIC URTICARIA 05/30/2012 IGNACIO WRIGHT, JULES 708.0 ALLERGIC URTICARIA 05/30/2012 JULES PIERRE MD 708.0 ALLERGIC URTICARIA 05/30/2012 708.0 ALLERGIC URTICARIA 05/30/2012 JULES PIERRE MD 708.0 ALLERGIC URTICARIA 05/30/2012 708.0 ALLERGIC URTICARIA 05/30/2012 708.0 ALLERGIC URTICARIA 05/30/2012 708.0 ALLERGIC URTICARIA 05/30/2012 ENCISO DO, PETE K 708.0 ALLERGIC URTICARIA 05/30/2012 ENCISO DO, PETE K 708.0 ALLERGIC URTICARIA 05/30/2012 ENCISO DO, PETE K 708.0 ALLERGIC URTICARIA 05/30/2012 ENCISO DO, PETE K 708.0 ALLERGIC URTICARIA 05/30/2012 ENCISO DO, PETE K 708.0 ALLERGIC URTICARIA 05/30/2012 ANTONETTE KATZ APRN R 708.0 ALLERGIC URTICARIA 05/30/2012 ANTONETTE KATZ APRN 708.0 ALLERGIC URTICARIA 05/30/2012 CÉSAR DDS, LESLIE M 708.0 ALLERGIC URTICARIA 05/30/2012 JAIRO ALBAS, TYRA B 708.0 ALLERGIC URTICARIA 05/30/2012 ENCISO DO, PETE K 708.0 ALLERGIC URTICARIA 05/30/2012 ANTONETTE KATZ APRN 708.0 ALLERGIC URTICARIA 05/30/2012 ENCISO DO, PETE K 708.0 ALLERGIC URTICARIA 05/30/2012 ENCISO DO, PETE K 708.0 ALLERGIC URTICARIA 05/30/2012 ENCISO DO, PETE K 708.0 ALLERGIC URTICARIA 05/30/2012 ENCISO DO, PETE K 708.0 ALLERGIC URTICARIA 05/30/2012 ANTONETTE KATZ APRN R 708.0 ALLERGIC URTICARIA 05/30/2012 ENCISO DO, PETE K 708.0 ALLERGIC URTICARIA 05/30/2012 ENCISO DO, PETE K 708.0 ALLERGIC URTICARIA 05/30/2012 ENCISO DO, PETE K 708.0 ALLERGIC URTICARIA 05/30/2012 ANTONETTE KATZ APRN 708.0 ALLERGIC URTICARIA 05/30/2012 ENCISO DO, PETE K 708.0 ALLERGIC URTICARIA 05/30/2012 ENCISO DO, PETE K 708.0 ALLERGIC URTICARIA 05/30/2012 ANTONETTE KATZ APRN 708.0 ALLERGIC URTICARIA 05/30/2012 ENCISO DO, PETE K 708.0 ALLERGIC URTICARIA 05/31/2012 JULES PIERRE MD 706.2 SEBACEOUS CYST 05/31/2012 JULES PIERRE MD 706.2 SEBACEOUS CYST 05/31/2012 706.2 SEBACEOUS CYST 05/31/2012 JULES PIERRE MD 706.2 SEBACEOUS CYST 05/31/2012 706.2 SEBACEOUS CYST 05/31/2012 706.2 SEBACEOUS CYST 05/31/2012 706.2 SEBACEOUS CYST 05/31/2012 ENCISO DO, PETE K 706.2 SEBACEOUS CYST 05/31/2012 ENCISO DO, PETE K 706.2 SEBACEOUS CYST 05/31/2012 ENCISO DO, PETE K 706.2 SEBACEOUS CYST 05/31/2012 ENCISO DO, PETE K 706.2 SEBACEOUS CYST 05/31/2012 ENCISO DO, PETE K 706.2 SEBACEOUS CYST 05/31/2012 ANTONETTE KATZ APRN 706.2 SEBACEOUS CYST 05/31/2012 ANTONETTE KATZ APRN 706.2 SEBACEOUS CYST 05/31/2012 CÉSAR DDS, LESLIE Tang 706.2 SEBACEOUS CYST 05/31/2012 JAIRO DDS, TYRA B 706.2 SEBACEOUS CYST 05/31/2012 ENCISO DO, PETE K 706.2 SEBACEOUS CYST 05/31/2012 KATZ ASIM, ANTONETTE R 706.2 SEBACEOUS CYST 05/31/2012 ENCISO DO, PETE K 706.2 SEBACEOUS CYST 05/31/2012 ENCISO DO, PETE K 706.2 SEBACEOUS CYST 05/31/2012 ENCISO DO, PETE K 706.2 SEBACEOUS CYST 05/31/2012 ENCISO DO, PETE K 706.2 SEBACEOUS CYST 05/31/2012 KATZNICHOLE DAILEY, ANTONETTE R 706.2 SEBACEOUS CYST 05/31/2012 ENCISO DO, PETE K 706.2 SEBACEOUS CYST 05/31/2012 ENCISO DO, PETE K 706.2 SEBACEOUS CYST 05/31/2012 ENCISO DO, PETE K 706.2 SEBACEOUS CYST 05/31/2012 KATZ ASIM, ANTONETTE R 706.2 SEBACEOUS CYST 05/31/2012 ENCISO DO, PETE K 706.2 SEBACEOUS CYST 05/31/2012 ENCISO DO, PETE K 706.2 SEBACEOUS CYST 05/31/2012 KATZ SHEAR GRINDER OPERATOR, ANTONETTE R 706.2 SEBACEOUS CYST 05/31/2012 ENCISO DO, PETE K 706.2 SEBACEOUS CYST 07/05/2012 IGNACIO WRIGHT, JULES 466.0 ACUTE BRONCHITIS 07/05/2012 466.0 ACUTE BRONCHITIS 07/05/2012 466.0 ACUTE BRONCHITIS 07/05/2012 466.0 ACUTE BRONCHITIS 07/05/2012 ENCISO DO, PETE K 466.0 ACUTE BRONCHITIS 07/05/2012 ENCISO DO, PETE K 466.0 ACUTE BRONCHITIS 07/05/2012 ENCISO DO, PETE K 466.0 ACUTE BRONCHITIS 07/05/2012 ENCISO DO, PETE K 466.0 ACUTE BRONCHITIS 07/05/2012 ENCISO DO, PETE K 466.0 ACUTE BRONCHITIS 07/05/2012 ANTONETTE KATZ APRN 466.0 ACUTE BRONCHITIS 07/05/2012 ANTONETTE KATZ APRN 466.0 ACUTE BRONCHITIS 07/05/2012 CÉSAR DDS, LESLIE Tang 466.0 ACUTE BRONCHITIS 07/05/2012 REPLACED BY [facility] DDS, TYRA B 466.0 ACUTE BRONCHITIS 07/05/2012 ENCISO DO, PETE K 466.0 ACUTE BRONCHITIS 07/05/2012 ANTONETTE KATZ APRN R 466.0 ACUTE BRONCHITIS 07/05/2012 ENCISO DO, PETE K 466.0 ACUTE BRONCHITIS 07/05/2012 ENCISO DO, PETE K 466.0 ACUTE BRONCHITIS 07/05/2012 ENCISO DO, PETE K 466.0 ACUTE BRONCHITIS 07/05/2012 ENCISO DO, PETE K 466.0 ACUTE BRONCHITIS 07/05/2012 ANTONETTE KATZ APRN R 466.0 ACUTE BRONCHITIS 07/05/2012 ENCISO DO, PETE K 466.0 ACUTE BRONCHITIS 07/05/2012 ENCISO DO, PETE K 466.0 ACUTE BRONCHITIS 07/05/2012 ENCISO DO, PETE K 466.0 ACUTE BRONCHITIS 07/05/2012 ANTONETTE KATZ APRN R 466.0 ACUTE BRONCHITIS 07/05/2012 ENCISO DO, PETE K 466.0 ACUTE BRONCHITIS 07/05/2012 ENCISO DO, PETE K 466.0 ACUTE BRONCHITIS 07/05/2012 ANTONETTE KATZ APRN 466.0 ACUTE BRONCHITIS 07/05/2012 ENCISO DO, PETE K 466.0 ACUTE BRONCHITIS 08/21/2012 Ot 786.50 CHEST PAIN NOS 08/21/2012 Ot 786.52 PAINFUL RESPIRATION 08/21/2012 Ot V45.01 CARDIAC PACEMAKER IN SITU 08/21/2012 Ot V58.69 OTH MED,LT, CURRENT USE 11/16/2012 300.4 DYSTHYMIC DISORDER 11/16/2012 429.9 HEART DISEASE UNSPECIFIED 11/16/2012 300.4 DYSTHYMIC DISORDER 11/16/2012 429.9 HEART DISEASE UNSPECIFIED 11/16/2012 300.4 DYSTHYMIC DISORDER 11/16/2012 429.9 HEART DISEASE UNSPECIFIED 11/16/2012 ENCISO DO, PETE K 300.4 DYSTHYMIC DISORDER 11/16/2012 ENCISO DO, PETE K 429.9 HEART DISEASE UNSPECIFIED 11/16/2012 ENCISO DO, PETE K 300.4 DYSTHYMIC DISORDER 11/16/2012 ENCISO DO, PETE K 429.9 HEART DISEASE UNSPECIFIED 11/16/2012 ENCISO DO, PETE K 300.4 DYSTHYMIC DISORDER 11/16/2012 ENCISO DO, PETE K 429.9 HEART DISEASE UNSPECIFIED 11/16/2012 ENCISO DO, PETE K 300.4 DYSTHYMIC DISORDER 11/16/2012 ENCISO DO, PETE K 429.9 HEART DISEASE UNSPECIFIED 11/16/2012 ENCISO DO, PETE K 300.4 DYSTHYMIC DISORDER 11/16/2012 ENCISO DO, PETE K 429.9 HEART DISEASE UNSPECIFIED 11/16/2012 KATZ ANTONETTE DAILEY R 300.4 DYSTHYMIC DISORDER 11/16/2012 KATZ SHEAR GRINDER OPERATOR, ANTONETTE R 429.9 HEART DISEASE UNSPECIFIED 11/16/2012 KATZ SHEAR GRINDER OPERATOR, ANTONETTE R 300.4 DYSTHYMIC DISORDER 11/16/2012 KATZ SHEAR GRINDER OPERATOR, ANTONETTE R 429.9 HEART DISEASE UNSPECIFIED 11/16/2012 CÉSAR DDS, LESLIE M 300.4 DYSTHYMIC DISORDER 11/16/2012 CÉSAR DDS, LESLIE M 429.9 HEART DISEASE UNSPECIFIED 11/16/2012 JAIRO DDS, TYRA B 300.4 DYSTHYMIC DISORDER 11/16/2012 JAIRO DDS, TYRA B 429.9 HEART DISEASE UNSPECIFIED 11/16/2012 ENCISO DO, PETE K 300.4 DYSTHYMIC DISORDER 11/16/2012 ENCISO DO, PETE K 429.9 HEART DISEASE UNSPECIFIED 11/16/2012 KATZ SHEAR GRINDER OPERATORANTONETTE Webb R 300.4 DYSTHYMIC DISORDER 11/16/2012 KATZ SHEAR GRINDER OPERATOR, ANTONETTE R 429.9 HEART DISEASE UNSPECIFIED 11/16/2012 ENCISO DO, PETE K 300.4 DYSTHYMIC DISORDER 11/16/2012 ENCISO DO, PETE K 429.9 HEART DISEASE UNSPECIFIED 11/16/2012 ENCISO DO, PETE K 300.4 DYSTHYMIC DISORDER 11/16/2012 ENCISO DO, PETE K 429.9 HEART DISEASE UNSPECIFIED 11/16/2012 ENCISO DO, PETE K 300.4 DYSTHYMIC DISORDER 11/16/2012 ENCISO DO, PETE K 429.9 HEART DISEASE UNSPECIFIED 11/16/2012 ENCISO DO, PETE K 300.4 DYSTHYMIC DISORDER 11/16/2012 ENCISO DO, PETE K 429.9 HEART DISEASE UNSPECIFIED 11/16/2012 KATZ SHEAR GRINDER OPERATORANTONETTE Webb R 300.4 DYSTHYMIC DISORDER 11/16/2012 KATZ SHEAR GRINDER OPERATOR, ANTONETTE R 429.9 HEART DISEASE UNSPECIFIED 11/16/2012 ENCISO DO, PETE K 300.4 DYSTHYMIC DISORDER 11/16/2012 ENCISO DO, PETE K 429.9 HEART DISEASE UNSPECIFIED 11/16/2012 ENCISO DO, PETE K 300.4 DYSTHYMIC DISORDER 11/16/2012 ENCISO DO, PETE K 429.9 HEART DISEASE UNSPECIFIED 11/16/2012 ENCISO DO, PETE K 300.4 DYSTHYMIC DISORDER 11/16/2012 ENCISO DO, PETE K 429.9 HEART DISEASE UNSPECIFIED 11/16/2012 KATZ ANTONETTE DAILEY 300.4 DYSTHYMIC DISORDER 11/16/2012 KATZ ANTONETTE DAILEY 429.9 HEART DISEASE UNSPECIFIED 11/16/2012 ENCISO DO, PETE K 300.4 DYSTHYMIC DISORDER 11/16/2012 ENCISO DO, PETE K 429.9 HEART DISEASE UNSPECIFIED 11/16/2012 ENCISO DO, PETE K 300.4 DYSTHYMIC DISORDER 11/16/2012 ENCISO DO, PETE K 429.9 HEART DISEASE UNSPECIFIED 11/16/2012 KATZ ANTONETTE DAILEY 300.4 DYSTHYMIC DISORDER 11/16/2012 KATZ ANTONETTE DAILEY 429.9 HEART DISEASE UNSPECIFIED 11/16/2012 ENCISO DO, PETE K 300.4 DYSTHYMIC DISORDER 11/16/2012 ENCISO DO, PETE K 429.9 HEART DISEASE UNSPECIFIED 01/17/2013 919.4 INSECT BITE NONVENOMOUS OF OTHER MULTIPLE AND UNSPECIFIED SITES WITHOUT INFECTION 01/17/2013 ENCISO DO, PETE K 919.4 INSECT BITE NONVENOMOUS OF OTHER MULTIPLE AND UNSPECIFIED SITES WITHOUT INFECTION 01/17/2013 ENCISO DO, PETE K 919.4 INSECT BITE NONVENOMOUS OF OTHER MULTIPLE AND UNSPECIFIED SITES WITHOUT INFECTION 01/17/2013 ENCISO DO, PETE K 919.4 INSECT BITE NONVENOMOUS OF OTHER MULTIPLE AND UNSPECIFIED SITES WITHOUT INFECTION 01/17/2013 ENCISO DO, PETE K 919.4 INSECT BITE NONVENOMOUS OF OTHER MULTIPLE AND UNSPECIFIED SITES WITHOUT INFECTION 01/17/2013 ENCISO DO, PETE K 919.4 INSECT BITE NONVENOMOUS OF OTHER MULTIPLE AND UNSPECIFIED SITES WITHOUT INFECTION 01/17/2013 KATZ ANTONETTE DAILEY 919.4 INSECT BITE NONVENOMOUS OF OTHER MULTIPLE AND UNSPECIFIED SITES WITHOUT INFECTION 01/17/2013 KATZ ANTONETTE DAILEY 919.4 INSECT BITE NONVENOMOUS OF OTHER MULTIPLE AND UNSPECIFIED SITES WITHOUT INFECTION 01/17/2013 CÉSAR DDS, LESLIE M 919.4 INSECT BITE NONVENOMOUS OF OTHER MULTIPLE AND UNSPECIFIED SITES WITHOUT INFECTION 01/17/2013 JAIRO DDS, TYRA B 919.4 INSECT BITE NONVENOMOUS OF OTHER MULTIPLE AND UNSPECIFIED SITES WITHOUT INFECTION 01/17/2013 ENCISO DO, PETE K 919.4 INSECT BITE NONVENOMOUS OF OTHER MULTIPLE AND UNSPECIFIED SITES WITHOUT INFECTION 01/17/2013 ANTONETTE KATZ APRN 919.4 INSECT BITE NONVENOMOUS OF OTHER MULTIPLE AND UNSPECIFIED SITES WITHOUT INFECTION 01/17/2013 ENCISO DO, PETE K 919.4 INSECT BITE NONVENOMOUS OF OTHER MULTIPLE AND UNSPECIFIED SITES WITHOUT INFECTION 01/17/2013 ENCISO DO, PETE K 919.4 INSECT BITE NONVENOMOUS OF OTHER MULTIPLE AND UNSPECIFIED SITES WITHOUT INFECTION 01/17/2013 ENCISO DO, PETE K 919.4 INSECT BITE NONVENOMOUS OF OTHER MULTIPLE AND UNSPECIFIED SITES WITHOUT INFECTION 01/17/2013 ENCISO DO, PETE K 919.4 INSECT BITE NONVENOMOUS OF OTHER MULTIPLE AND UNSPECIFIED SITES WITHOUT INFECTION 01/17/2013 ANTONETTE KATZ APRN 919.4 INSECT BITE NONVENOMOUS OF OTHER MULTIPLE AND UNSPECIFIED SITES WITHOUT INFECTION 01/17/2013 ENCISO DO, PETE K 919.4 INSECT BITE NONVENOMOUS OF OTHER MULTIPLE AND UNSPECIFIED SITES WITHOUT INFECTION 01/17/2013 ENCISO DO, PETE K 919.4 INSECT BITE NONVENOMOUS OF OTHER MULTIPLE AND UNSPECIFIED SITES WITHOUT INFECTION 01/17/2013 ENCISO DO, PETE K 919.4 INSECT BITE NONVENOMOUS OF OTHER MULTIPLE AND UNSPECIFIED SITES WITHOUT INFECTION 01/17/2013 ANTONETTE KATZ APRN 919.4 INSECT BITE NONVENOMOUS OF OTHER MULTIPLE AND UNSPECIFIED SITES WITHOUT INFECTION 01/17/2013 ENCISO DO, PETE K 919.4 INSECT BITE NONVENOMOUS OF OTHER MULTIPLE AND UNSPECIFIED SITES WITHOUT INFECTION 01/17/2013 ENCISO DO, PETE K 919.4 INSECT BITE NONVENOMOUS OF OTHER MULTIPLE AND UNSPECIFIED SITES WITHOUT INFECTION 01/17/2013 ANTONETTE KATZ APRN 919.4 INSECT BITE NONVENOMOUS OF OTHER MULTIPLE AND UNSPECIFIED SITES WITHOUT INFECTION 01/17/2013 ENCISO DO, EPTE K 919.4 INSECT BITE NONVENOMOUS OF OTHER MULTIPLE AND UNSPECIFIED SITES WITHOUT INFECTION 04/16/2013 ENCISO DO, PETE K V04.81 FLU SHOT 04/16/2013 ENCISO DO, PETE K V04.81 FLU SHOT 04/16/2013 ENCISO DO, PETE K V04.81 FLU SHOT 04/16/2013 ENCISO DO, PETE K V04.81 FLU SHOT 04/16/2013 KATZ SHEAR GRINDER OPERATOR, ANTONETTE R V04.81 FLU SHOT 04/16/2013 KATZ SHEAR GRINDER OPERATOR, ANTONETTE Lea V04.81 FLU SHOT 04/16/2013 CÉSAR DDS, LESLIE M V04.81 FLU SHOT 04/16/2013 JAIRO DDS, TYRA B V04.81 FLU SHOT 04/16/2013 ENCISO DO, PETE K V04.81 FLU SHOT 04/16/2013 KATZ SHEAR GRINDER OPERATOR, ANTONETTE R V04.81 FLU SHOT 04/16/2013 ENCISO DO, PETE K V04.81 FLU SHOT 04/16/2013 ENCISO DO, PETE K V04.81 FLU SHOT 04/16/2013 ENCISO DO, PETE K V04.81 FLU SHOT 04/16/2013 ENCISO DO, PETE K V04.81 FLU SHOT 04/16/2013 KATZ SHEAR GRINDER OPERATOR, ANTONETTE Lea V04.81 FLU SHOT 04/16/2013 ENCIOS DO, PETE K V04.81 FLU SHOT 04/16/2013 ENCISO DO, PETE K V04.81 FLU SHOT 04/16/2013 ENCISO DO, PETE K V04.81 FLU SHOT 04/16/2013 KATZ SHEAR GRINDER OPERATOR, ANTONETTE Lea V04.81 FLU SHOT 04/16/2013 ENCISO DO, PETE K V04.81 FLU SHOT 04/16/2013 ENCISO DO, PETE K V04.81 FLU SHOT 04/16/2013 KATZ SHEAR GRINDER OPERATOR, ANTONETTE Lea V04.81 FLU SHOT 04/16/2013 ENCISO DO, PETE K V04.81 FLU SHOT 06/10/2013 ENCISO DO, PETE Viramontes 686.8 BACTERID 06/10/2013 ENCISO DO, PETE Viramontes 686.8 BACTERID 06/10/2013 KATZ SHEAR GRINDER OPERATORANTONETTE 686.8 BACTERID 06/10/2013 ANTONETTE KATZ APRN 686.8 BACTERID 06/10/2013 CÉSAR DDS, LESLIE Tang 686.8 BACTERID 06/10/2013 JAIRO WILLISS, TYRA B 686.8 BACTERID 06/10/2013 ENCISO DO, PETE K 686.8 BACTERID 06/10/2013 ANTONETTE KATZ APRN R 686.8 BACTERID 06/10/2013 ENCISO DO, PETE K 686.8 BACTERID 06/10/2013 ENCISO DO, PETE K 686.8 BACTERID 06/10/2013 ENCISO DO, PETE K 686.8 BACTERID 06/10/2013 ENCISO DO, PETE K 686.8 BACTERID 06/10/2013 ANTONETTE KATZ APRN 686.8 BACTERID 06/10/2013 ENCISO DO, PETE K 686.8 BACTERID 06/10/2013 ENCISO DO, PETE K 686.8 BACTERID 06/10/2013 ENCISO DO, PETE K 686.8 BACTERID 06/10/2013 ANTONETTE KATZ APRN 686.8 BACTERID 06/10/2013 ENCISO DO, PEET K 686.8 BACTERID 06/10/2013 ENCISO DO, PETE K 686.8 BACTERID 06/10/2013 ANTONETTE KATZ APRN 686.8 BACTERID 06/10/2013 ENCISO DO, PETE K 686.8 BACTERID 08/16/2013 ANTONETTE KATZ APRN V58.61 LONG-TERM (CURRENT) USE OF ANTICOAGULANTS 08/16/2013 CÉSAR WILLISS, LESLIE Tang V58.61 LONG-TERM (CURRENT) USE OF ANTICOAGULANTS 08/16/2013 JAIRO WILLISS, TYRA King V58.61 LONG-TERM (CURRENT) USE OF ANTICOAGULANTS 08/16/2013 ENCISO DO, PETE K V58.61 LONG-TERM (CURRENT) USE OF ANTICOAGULANTS 08/16/2013 ANTONETTE KATZ APRN V58.61 LONG-TERM (CURRENT) USE OF ANTICOAGULANTS 08/16/2013 ENCISO DO, PETE K V58.61 LONG-TERM (CURRENT) USE OF ANTICOAGULANTS 08/16/2013 ENCISO DO, PETE K V58.61 LONG-TERM (CURRENT) USE OF ANTICOAGULANTS 08/16/2013 ENCISO DO, PETE K V58.61 LONG-TERM (CURRENT) USE OF ANTICOAGULANTS 08/16/2013 ENCISO DO, PETE K V58.61 LONG-TERM (CURRENT) USE OF ANTICOAGULANTS 08/16/2013 ANTONETTE KATZ APRN V58.61 LONG-TERM (CURRENT) USE OF ANTICOAGULANTS 08/16/2013 ENCISO DO, PETE K V58.61 LONG-TERM (CURRENT) USE OF ANTICOAGULANTS 08/16/2013 ENCISO DO PETE K V58.61 LONG-TERM (CURRENT) USE OF ANTICOAGULANTS 08/16/2013 ENCIOS DO, PETE K V58.61 LONG-TERM (CURRENT) USE OF ANTICOAGULANTS 08/16/2013 ANTONETTE KATZ APRN V58.61 LONG-TERM (CURRENT) USE OF ANTICOAGULANTS 08/16/2013 FERNIE DOPETE K V58.61 LONG-TERM (CURRENT) USE OF ANTICOAGULANTS 08/16/2013 ENCISO DO, PETE K V58.61 LONG-TERM (CURRENT) USE OF ANTICOAGULANTS 08/16/2013 ANTONETTE KATZ APRN V58.61 LONG-TERM (CURRENT) USE OF ANTICOAGULANTS 08/16/2013 ENCISO DO PETE K V58.61 LONG-TERM (CURRENT) USE OF ANTICOAGULANTS 09/11/2013 CÉSAR DDS, LESLIE M 522.5 PERIAPICAL ABSCESS WITHOUT SINUS 09/11/2013 JAIRO DDS, TYRA B 522.5 PERIAPICAL ABSCESS WITHOUT SINUS 09/11/2013 ENCISO DO, PETE K 522.5 PERIAPICAL ABSCESS WITHOUT SINUS 09/11/2013 ANTONETTE KATZ APRN 522.5 PERIAPICAL ABSCESS WITHOUT SINUS 09/11/2013 ENCISO DO, PETE K 522.5 PERIAPICAL ABSCESS WITHOUT SINUS 09/11/2013 ENCISO DO, PETE K 522.5 PERIAPICAL ABSCESS WITHOUT SINUS 09/11/2013 ENCISO DO, PETE K 522.5 PERIAPICAL ABSCESS WITHOUT SINUS 09/11/2013 ENCISO DO, PETE K 522.5 PERIAPICAL ABSCESS WITHOUT SINUS 09/11/2013 KATZANTONETTE VARELA APRN 522.5 PERIAPICAL ABSCESS WITHOUT SINUS 09/11/2013 ENCISO DO, PETE K 522.5 PERIAPICAL ABSCESS WITHOUT SINUS 09/11/2013 ENCISO DO, PETE K 522.5 PERIAPICAL ABSCESS WITHOUT SINUS 09/11/2013 ENCISO DO, PETE K 522.5 PERIAPICAL ABSCESS WITHOUT SINUS 09/11/2013 KATZANTONETTE VARELA APRN 522.5 PERIAPICAL ABSCESS WITHOUT SINUS 09/11/2013 ENCISO , PETE K 522.5 PERIAPICAL ABSCESS WITHOUT SINUS 09/11/2013 ENCISO DO, PETE K 522.5 PERIAPICAL ABSCESS WITHOUT SINUS 09/11/2013 KATZANTONETTE VARELA APRN 522.5 PERIAPICAL ABSCESS WITHOUT SINUS 09/11/2013 ENCISO PETE RODRIGUEZ K 522.5 PERIAPICAL ABSCESS WITHOUT SINUS 03/12/2014 FERNIE RODRIGUEZ, PETE K 692.9 DERMATITIS CONTACT UNSPECIFIED 03/12/2014 ENCISO , PETE K 692.9 DERMATITIS CONTACT UNSPECIFIED 03/12/2014 ENCISO , PETE K 692.9 DERMATITIS CONTACT UNSPECIFIED 03/12/2014 ANTONETTE KATZ APRN 692.9 DERMATITIS CONTACT UNSPECIFIED 03/12/2014 ENCISO PETE RODRIGUEZ K 692.9 DERMATITIS CONTACT UNSPECIFIED 03/12/2014 ENCISO PETE RODRIGUEZ K 692.9 DERMATITIS CONTACT UNSPECIFIED 03/12/2014 ANTONETTE KATZ APRN 692.9 DERMATITIS CONTACT UNSPECIFIED 03/12/2014 ENCISO PETE RODRIGUEZ K 692.9 DERMATITIS CONTACT UNSPECIFIED 06/04/2014 PETE ENCISO DO 345.90 SEIZURE DISORDER 06/04/2014 PETE ENCISO DO K 345.90 SEIZURE DISORDER 06/04/2014 ANTONETTE KATZ APRN 345.90 SEIZURE DISORDER 06/04/2014 PETE ENCISO DO 345.90 SEIZURE DISORDER 08/05/2014 ANTONETTE KATZ APRN 599.0 URINARY TRACT INFECTION 08/05/2014 PETE ENCISO DO 599.0 URINARY TRACT INFECTION 03/26/2015 Ot 812.03 03/26/2015 Ot E000.8 03/26/2015 Ot E003.2 03/26/2015 Ot E849.4 03/26/2015 Ot E888.9 03/26/2015 Ot V72.83 03/26/2015 Ot 996.61 03/26/2015 Ot V58.61 03/26/2015 Ot V58.61 03/26/2015 Ot V58.83 04/08/2015 DAVID MENEZES MD Ot M47.897 04/08/2015 DAVID MENEZES MD Ot M54.2 08/29/2017 Ot 996.61 INFECT INFLAM REACT DUE TO CARD DEV,IM 08/29/2017 Ot V58.61 ANTICOAGULANTS,LT,CURRENT USE 08/29/2017 Ot V58.61 ANTICOAGULANTS,LT,CURRENT USE 08/29/2017 Ot V58.83 ENCOUNTER FOR THERAPEUTIC DRUG MONITORIN 08/29/2017 DAVID MENEZES MD Ot M47.897 OTHER SPONDYLOSIS, LUMBOSACRAL REGION 08/29/2017 DAVID MENEZES MD Ot M54.2 CERVICALGIA Procedures Code Description Performed By Performed On Anesthesi Jose Manuel Henry 04/26/2012 69906 URINE DRUG SCREEN (IN-HOUSE ) 05/08/2012 77327 THERAPUTIC INJ SQ/IM 05/21/2012 J0696 ROCEPHIN INJ 05/21/2012 J2930 SOLUMEDROL INJ 05/21/2012 29997 THERAPUTIC INJ SQ/IM 05/30/2012 J2930 SOLUMEDROL INJ 05/30/2012 30966 URINE DRUG SCREEN (IN-HOUSE ) 05/31/2012 URINEDRUG URINE DRUG SCREEN (CON'F ) 06/02/2012 37215 URINE DRUG SCREEN (IN-HOUSE ) 06/07/2012 84283 ROUTINE VENIPUNCTURE 07/05/2012 12231 CBC 07/05/2012 98507 CMP 07/05/2012 4382971 GFR CALC (RESULT ONLY) 07/05/2012 29602 TSH 07/06/2012 22825 INR (IN HOUSE) 11/16/2012 92610 CMP 11/16/2012 25236 CBC 11/16/2012 65959 CULTURE BLOOD 11/16/2012 31697 INR (IN HOUSE) 12/20/2012 44053 INR (IN HOUSE) 02/20/2013 53220 URINE DRUG SCREEN (IN-HOUSE ) 02/20/2013 55744 INR (IN HOUSE) 03/20/2013 98536 INR (IN HOUSE) 04/16/2013 24781 INR (IN HOUSE) 05/20/2013 37526 CULTURE WOUND (AEROBIC) 06/10/2013 46974 THERAPUTIC INJ SQ/IM 06/10/2013 J0696 ROCEPHIN INJ 1 g 06/10/2013 68974 INR (IN HOUSE) 06/18/2013 80439 URINE DRUG SCREEN (IN-HOUSE ) 07/17/2013 91056 URINE DRUG SCREEN (IN-HOUSE ) 08/15/2013 91936 INR (IN HOUSE) 08/16/2013 48177 INR (IN HOUSE) 10/09/2013 57348 INR (IN HOUSE) 11/06/2013 28927 URINE DRUG SCREEN (IN-HOUSE ) 11/06/2013 27775 INR (IN HOUSE) 12/10/2013 45239 URINE DRUG SCREEN (IN-HOUSE ) 12/10/2013 49790 INR (IN HOUSE) 12/23/2013 06451 INR (IN HOUSE) 01/06/2014 86195 INR (IN HOUSE) 01/21/2014 98916 URINE DRUG SCREEN (IN-HOUSE ) 04/10/2014 88627 INR (IN HOUSE) 05/08/2014 81582 INFLUENZA A & B (IN-HOUSE) 05/08/2014 32417 INR (IN HOUSE) 06/04/2014 33414 URINE DRUG SCREEN (IN-HOUSE ) 07/02/2014 62379 INR (IN HOUSE) 07/02/2014 25752 TEST, URINE (IN- HOUSE) 07/21/2014 22342 INR (IN HOUSE) 07/21/2014 72279 URINE DRUG SCREEN (IN-HOUSE ) 07/21/2014 45359 THERAPUTIC INJ SQ/IM 08/05/2014 J0696 ROCEPHIN INJ 1 g 08/05/2014 68586 URINE DRUG SCREEN (IN-HOUSE ) 08/05/2014 32603 UA LONG DIP 08/05/2014 44449 INR (IN HOUSE) 09/12/2014 90797 URINE DRUG SCREEN (IN-HOUSE ) 09/29/2014 29301 INR (IN HOUSE) 09/29/2014 Results There is no data. Encounters ACCT No. Visit Date/Time Discharge Status Pt. Type Provider Facility Loc./Unit Complaint [id number] 09/29/2014 15:31:00 09/29/2014 23:59:59 CLS Outpatient PETE ENCISO DO [id number] 07/21/2014 09:22:00 07/21/2014 23:59:59 CLS Outpatient ANTONETTE KATZ APRN [id number] 07/02/2014 10:56:00 07/02/2014 23:59:59 CLS Outpatient PETE ENCISO DO [id number] 06/04/2014 14:15:00 06/04/2014 23:59:59 CLS Outpatient ENCISO DOPETE [id number] 05/08/2014 09:25:00 05/08/2014 23:59:59 CLS Outpatient ENCISO DOPETE [id number] 05/08/2014 09:25:00 05/08/2014 23:59:59 CLS Outpatient KATZ ANTONETTE DAILEY [id number] 04/10/2014 09:59:00 04/10/2014 23:59:59 CLS Outpatient ENCISO DOPETE [id number] 03/12/2014 09:10:00 03/12/2014 23:59:59 CLS Outpatient ENCISO DOPETE [id number] 01/21/2014 14:02:00 01/21/2014 23:59:59 CLS Outpatient KATZ ANTONETTE DAILEY [id number] 01/06/2014 09:58:00 01/06/2014 23:59:59 CLS Outpatient ENCISO DOPETE [id number] 12/23/2013 09:03:00 12/23/2013 23:59:59 CLS Outpatient ENCISO DOPETE [id number] 12/10/2013 08:46:00 12/10/2013 23:59:59 CLS Outpatient ENCISO DOPETE [id number] 11/27/2013 08:41:00 11/27/2013 23:59:59 CLS Outpatient ENCISO DOPETE [id number] 11/06/2013 09:19:00 11/06/2013 23:59:59 CLS Outpatient ENCISO DOPETE [id number] 11/06/2013 09:19:00 11/06/2013 23:59:59 CLS Outpatient KATZ ANTONETTE DAILEY [id number] 10/09/2013 13:16:00 10/09/2013 23:59:59 CLS Outpatient JAIRO DDSTYRA [id number] 09/12/2013 14:12:00 09/12/2013 23:59:59 CLS Outpatient CÉSAR LESLIE MURRELL [id number] 08/16/2013 14:29:00 08/16/2013 23:59:59 CLS Outpatient ANTONETTE KATZ APRN [id number] 07/17/2013 11:50:00 07/17/2013 23:59:59 CLS Outpatient ANTONETTE KATZ APRN [id number] 06/18/2013 09:20:00 06/18/2013 23:59:59 CLS Outpatient PETE ENCISO DO [id number] 06/10/2013 14:20:00 06/10/2013 23:59:59 CLS Outpatient PETE ENCISO DO [id number] 05/20/2013 11:12:00 05/20/2013 23:59:59 CLS Outpatient PETE ENCISO DO [id number] 04/16/2013 11:51:00 04/16/2013 23:59:59 CLS Outpatient PETE ENCISO DO [id number] 03/20/2013 15:17:00 03/20/2013 23:59:59 CLS Outpatient PETE ENCISO DO [id number] 07/05/2012 15:07:00 07/05/2012 23:59:59 CLS Outpatient JULES PIERRE MD [id number] 06/28/2012 16:44:00 06/28/2012 23:59:59 CLS Outpatient [id number] 06/07/2012 12:37:00 06/07/2012 23:59:59 CLS Outpatient JULES PIERRE MD [id number] 05/31/2012 16:30:00 05/31/2012 23:59:59 CLS Outpatient JULES PIERRE MD [id number] 05/30/2012 16:14:00 05/30/2012 23:59:59 CLS Outpatient [id number] 04/26/2012 08:34:00 04/26/2012 23:59:59 CLS Outpatient LIEN CHAVEZ MD [id number] 02/20/2013 09:33:00 Document Registration [id number] 12/20/2012 15:52:00 Document Registration [id number] 11/16/2012 09:52:00 Document Registration [id number] 08/28/2017 08:47:00 08/28/2017 09:20:00 DIS Outpatient ATIF VELAZQUEZ DO [facility] PREOP LIPOMA LEFT LOWER BACK [id number] 03/26/2015 14:51:00 03/26/2015 23:59:59 CLS Outpatient DAVID MENEZES MD [facility] RAD LBP,CERVICALGIA [id number] 08/31/2017 10:15:00 PEN Preadmit ATIF VELAZQUEZ DO [facility] LIPOMA LEFT LOWER BACK [id number] 03/26/2015 14:50:00 Document Registration [id number] 03/26/2015 14:50:00 Document Registration [id number] 03/26/2015 14:50:00 Document Registration [id number] 03/26/2015 14:50:00 Document Registration [id number] 03/26/2015 14:50:00 Document Registration [id number] 09/19/2012 12:45:00 Document Registration [id number] 08/21/2012 16:47:00 Document Registration [id number] 11/28/2010 17:38:00 Document Registration [id number] 11/03/2010 14:13:00 Document Registration [id number] 08/05/2010 07:44:00 Document Registration [id number] 07/28/2010 18:30:00 Document Registration
[2017-08-31 13:08] LABS: BASOPHILS % (AUTO) 1 % (0-10); EOSINOPHILS # (AUTO) 0.2 10^3/uL (0.0-0.3); EOSINOPHILS % (AUTO) 2 % (0-10); HEMATOCRIT 39 % (35-52); HEMOGLOBIN 13.2 G/DL (11.5-16.0); LYMPHOCYTES # (AUTO) 3.2 X 10^3 (1.0-4.0); LYMPHOCYTES % (AUTO) 44 % (12-44); MEAN CORPUSCULAR HEMOGLOBIN 30 PG (25-34); MEAN CORPUSCULAR HGB CONC 34 G/DL (32-36); MEAN CORPUSCULAR VOLUME 88 FL (80-99); MEAN PLATELET VOLUME 9.3 FL (7.4-10.4); MONOCYTES # (AUTO) 0.4 X 10^3 (0.0-1.0); MONOCYTES % (AUTO) 6 % (0-12); NEUTROPHILS # (AUTO) 3.5 X 10^3 (1.8-7.8); NEUTROPHILS % (AUTO) 48 % (42-75); PLATELET COUNT 404 10^3/uL (130-400); RED BLOOD COUNT 4.39 10^6/uL (4.35-5.85); WHITE BLOOD COUNT 7.2 10^3/uL (4.3-11.0)
[2017-08-31 13:20] LABS: PROTHROMBIN TIME PATIENT 12.8 SEC (12.2-14.7)
[2017-08-31] MEDS ORDERED: MIDAZOLAM 2 MG/2 ML (VERSED) VIAL IVP ONE (13:30)
--- NOTE | 2017-08-31 14:27 | Progress Note-Post Operative ---
Post-Operative Progess Note Surgeon (s)/Campground Manager (s) Surgeon ATIF VELAZQUEZ DO Campground Manager: na Pre-Operative Diagnosis left lower quadrant back mass Post-Operative Diagnosis same Procedure & Operative Findings Date of Procedure 08/31/17 Procedure Performed/Findings excision lipoma left lower back 6.5x6.5x1.5cm Anesthesia Type gen Estimated Blood Loss Estimated blood loss (mL): min Specimens/Packing Specimens Removed lipoma ATIF VELAZQUEZ DO Aug 31, 2017 14:27
--- NOTE | 2017-08-31 14:29 | Discharge Inst-Simple/Standard ---
Discharge Inst-Standard Patient Instructions/Follow Up Plan of Care/Instructions/FU: 2 weeks Kayla Activity as Tolerated: No Discharge Diet: Regular Diet Other Inst to Patient Follow up Appt: Make appointment for 2 week. Instructions: No lifting greater than 20 pounds. No strenuous activity. May shower in 24 hours, no tub bath or soaking. Use incentive spirometer at home as directed. No Smoking Skin/Wound Care: May remove bandages in 24 hours. You need to leave the white strips over incision on they will fall off on their own. Symptoms to Report: Appetite Changes, Extremity Discoloration, Numbness/Tingling, Swelling Increased , Bleeding Excessive, Eyesight Changes, Pain Increased, Urine Color Change, Constipation(Persistent), Fever over 101 degree F, Pain/Pressure in chest, Urinating Difficulty, Cough Up/Vomit Blood, Heart Beat Irreg/Pounding, Pain/ Pressure in jaw, Vaginal Bleeding Increase, Cramps in feet or legs, Lightheadedness, Pain/Pressure in shoulder, Diarrhea(Persistent), Memory Changes Suddenly, Questions/Concerns, Weight gain consecutive days, Dizziness/ Fainting, Nausea/Vomiting, Shortness of Breath, Weight gain over 2 pounds If questions or concerns contact your physician Or seek help at emergency department. ATIF VELAZQUEZ DO Aug 31, 2017 14:29
[2017-08-31] MEDS ORDERED: morphine INJ 10 MG/ML 1ML (SYR OR VIAL) ONE (14:32)
[2017-08-31] MEDS: morphine INJ 10 MG/ML 1ML (SYR OR VIAL) IVP PRN ×2 (14:37→14:43)
--- NOTE | 2017-08-31 14:49 | Anesthesia-General Post-Op ---
General Patient Condition Mental Status/LOC: Same as Preop Cardiovascular: Satisfactory Nausea/Vomiting: Absent Respiratory: Satisfactory Pain: Controlled Complications: Absent Post Op Complications Complications None Follow Up Care/Instructions Patient Instructions None needed. Anesthesia/Patient Condition Patient Condition Patient is doing well, no complaints, stable vital signs, no apparent adverse anesthesia problems. ANTON DUPONT DO Aug 31, 2017 14:49
[2017-08-31] MEDS ORDERED: HYDROmorphone (DILAUDID) 2 MG/ML VIAL IVP PRN (15:00)
[2017-08-31] MEDS ORDERED: ONDANSETRON 4 MG/2 ML (SDV) Z0FRAN IVP PRN (15:00)
[2017-08-31 15:30] VITALS: BP 152/93
[2017-08-31 15:31] VITALS: BP 152/93
[2017-08-31 16:15] VITALS: BP 131/80
--- NOTE | 2017-08-31 22:54 | OPERATIVE REPORT ---
DATE OF SERVICE: 08/31/2017 PREOPERATIVE DIAGNOSIS: Lipoma left lower back. POSTOPERATIVE DIAGNOSIS: Lipoma left lower back. PROCEDURE: Excision of lipoma, left lower back 6.5 x 6.5 x 1.5 cm. SURGEON: Atif Garza DO. ANESTHESIA: General. ESTIMATED BLOOD LOSS: Minimal. COMPLICATIONS: None. INDICATIONS: The patient is a 42-year-old female with lipoma left lower back. She understands risks and benefits of procedure and wished to proceed with procedure. Consent was signed on chart. DESCRIPTION OF PROCEDURE: The patient was taken to the operating suite. She was prepped and draped in sterile fashion. Surgical pause was performed. A 15 blade scalpel was used to make an incision over the palpable mass. Cautery was taken down and the lipoma was identified. Blunt dissection was used to remove also with cautery dissection. Once removed, the wound was irrigated with copious amounts of irrigation. Skin was then closed using a 2-0 Prolene in a vertical mattress fashion. The area was then washed and dried. A total of 0.5% Marcaine with 1% lidocaine was used to anesthetize the area. The area was then washed and dried and sterile bandage was applied. The patient tolerated procedure well without any complications. She was taken to recovery room in stable condition. Job ID: [id number] DocumentID: [id number] Dictated Date: 08/31/2017 14:31:55 Waste Machine Operator Date: 08/31/2017 22:54:20 Dictated By: ATIF GARZA DO
== END 2017-08-31 16:35 | disposition home or self-care (01) ==
LOC: SDC 11:36
PROVIDERS: ATTEND Surgery
DX: D17.1 Benign lipomatous neoplasm of skin and subcutaneous tissue of trunk (principal); J44.9 Chronic obstructive pulmonary disease, unspecified; F17.210 Nicotine dependence, cigarettes, uncomplicated; R56.9 Unspecified convulsions; F32.9 Major depressive disorder, single episode, unspecified; F41.9 Anxiety disorder, unspecified; Z86.19 Personal history of other infectious and parasitic diseases; Z95.810 Presence of automatic (implantable) cardiac defibrillator; Z79.01 Long term (current) use of anticoagulants; Z79.899 Other long term (current) drug therapy
CPT/HCPCS: 36415; 80306; 84703; 85025; 85610; 87081